=== PATIENT | male | born 1940 | race Caucasian/White ===

== ENCOUNTER 2021-02-13 17:25 | Emergency (ER) | payer MEDICARE, OTHER ==
[2021-02-13] MEDS ORDERED: Lidocaine 2% 5 ML SDV ONE (17:46)
--- NOTE | 2021-02-13 18:22 | CR ---
[id number] RAD/RAD Fingers Left EXAM: RAD Fingers Left INDICATION: SAW INJURY. COMPARISON: None. DISCUSSION: There is an acute significantly comminuted distal second phalanx fracture with an associated soft tissue defect and apparent missing osseous fragments. There is extension to the distal interphalangeal joint without associated step-off or displacement seen at the articular surface. No radiopaque foreign body is identified. IMPRESSION: 1. Acute comminuted distal second phalanx fracture with missing bone fragments. Kenneth Hussein MD 02/13/21 [id number] Thank you for allowing us to participate in the care of your patient.
--- NOTE | 2021-02-13 18:31 | EDM.PDOC ---
ED HPI GENERAL MEDICAL PROBLEM - General Chief Complaint: Laceration Stated Complaint: LEFT INDEX FINGER Table saw injury Time Seen by Provider: 02/13/21 17:35 Source of Information: Reports: Patient History Limitations: Reports: No Limitations - History of Present Illness INITIAL COMMENTS - FREE TEXT/NARRATIVE: 80-year-old male presents emergency room with an injury to his left index finger which occurred from a table saw injury while ripping wood. Accident happened about 5 PM this evening. He was brought here by his nephew for evaluation. Other than numbness and slight discomfort to the finger he has no other complaints. He did bandages prior to arrival. He is otherwise very healthy gentleman has not had any significant past medical history no previous hospitalizations. He does not take any medications. He has no known drug allergies. He is otherwise a very healthy. He lives independently on his own. Onset: Today Onset Date: 02/13/21 Onset Time: 17:00 Duration: Minutes:, Constant Location: Reports: Upper Extremity, Left (index finger table saw injury) Quality: Reports: Throbbing Severity: Severe Improves with: Reports: Immobilization Worsens with: Reports: Movement Associated Symptoms: Reports: Other (numbness) Treatments [employer]: Reports: Dressing(s) Left Finger-Index Pain Score (Numeric/FACES): 2 - Related Data Allergies Allergy/AdvReac Type Severity Reaction Status Date / Time No Known Drug Allergies Allergy Cannot Verified 02/13/21 17:39 Remember Home Meds: Home Meds . [No Known Home Meds] 02/13/21 [History] ED ROS GENERAL - Review of Systems Review Of Systems: Comprehensive ROS is negative, except as noted in HPI. ED EXAM, SKIN/RASH Exam: See Below Exam Limited By: No Limitations General Appearance: Alert, WD/WN, No Apparent Distress Eye Exam: Bilateral Eye: EOMI Ears: Hearing Grossly Normal Nose: Normal Inspection Throat/Mouth: Normal Inspection, Normal Voice Head: Atraumatic, Normocephalic Neck: Normal Inspection, Supple Respiratory/Chest: No Respiratory Distress, Lungs Clear Cardiovascular: Regular Rate, Rhythm GI/Abdominal: Soft, Non-Tender Back Exam: Normal Inspection Extremities: Other (partial amputation left index finger distal Phalanx. Nailbed loss.) Neurological: Alert, Oriented, Sensory/Motor Deficit (distal finger numbess) Psychiatric: Normal Affect, Normal Mood Skin: Wound/Incision (left finger distal) Location, Skin: Upper Extremity, Left (left distal index finger) Course - Vital Signs Last Recorded V/S: Last Vital Signs Temp 96.8 F L 02/13/21 17:40 Pulse 82 02/13/21 17:40 Resp 16 02/13/21 17:40 BP 172/82 H 02/13/21 18:42 Pulse Ox 97 02/13/21 17:40 - Orders/Labs/Meds Meds: Medications Discontinued Medications Generic Name Dose Route Start Last Admin Trade Name Janice PRN Reason Stop Dose Admin Lidocaine Confirm 02/13/21 17:46 Lidocaine 2% 5 Ml Sdv Administered 02/13/21 17:47 Dose 5 ml .ROUTE .[facility] ONE - Radiology Interpretation Free Text/Narrative:: X-rays 2 views left finger(index) Discussion: There is acute significantly comminuted distal second phalanx fracture with associated soft tissue defect and apparent missing osseous fragments. There is extension of the distal interphalangeal joint without associated step-off or displacement seen at the articular surface. No radiopaque foreign body is identified. 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 Transfer to [facility] for definitive management of partial left index amputation 2. Do not eat or drink anything during your drive. Remain n.p.o. 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 Light dressing was applied with Coban for compression. 2. I offered the patient a digital block for pain relief. He denied wanting this at this time as he is mainly just having some numbness at the distal finger and his pain is well controlled.. 3. Discussed with transfer for completion of the amputation and revision of the distal phalanx tip with [facility] in [place]. Awaiting for patient acceptance. 4. Preoperative H&P was completed no contraindications to proceed with surgery.
== END 2021-02-13 19:00 ==
LOC: KA.ED 17:25
DX: S68.621A Partial traumatic transphalangeal amputation of left index finger, initial encounter (principal); W27.0XXA Contact with workbench tool, initial encounter
CPT/HCPCS: 73140-F1; 99283; 99284-25

== ENCOUNTER 2024-04-12 18:06 | Inpatient (IN) | payer MEDICARE, OTHER ==
[2024-04-12 18:54] LABS: HEMATOCRIT 54.2 % (40.0-52.0); HEMOGLOBIN 17.8 g/dL (13.0-17.0); MEAN CORPUSCULAR HEMOGLOBIN 29.1 pg (27.0-31.0); MEAN CORPUSCULAR HGB CONC 32.8 g/dL (32.0-36.0); MEAN CORPUSCULAR VOLUME 88.7 fL (82.0-92.0); PLATELET COUNT,PLT 182 10^3/uL (150-400); RED BLOOD CELL COUNT 6.11 10^6/uL (4.50-6.00); RED CELL DISTRIBUTION WIDTH 13.2 % (11.5-14.5); WHITE BLOOD CELL COUNT,WBC 10.21 10^3/uL (5.00-10.00)
[2024-04-12] MEDS: Sodium Chloride 0.9% 1,000 ML IV ONE (19:04)
[2024-04-12] MEDS: Diltiazem 25 MG/5 ML SDV IVPUSH ONE (19:09)
[2024-04-12 19:23] LABS: ANION GAP 13.1 mmol/L (5-15); BILIRUBIN TOTAL 0.8 mg/dL (0.2-1.0); CALCIUM 9.2 mg/dL (8.7-10.3); CREATININE 1.71 mg/dL (0.51-1.17); EST CRCL DRUG DOSING (CG) 32.73 mL/min; MAGNESIUM 1.8 mg/dL (1.8-2.4); POTASSIUM,K 5.1 mmol/L (3.5-5.1); PROTEIN TOTAL,TP 8.4 g/dL (6.4-8.2)
[2024-04-12] MEDS ORDERED: Ondansetron 4 MG/2 ML SDV IV PRN (21:07)
[2024-04-12] MEDS ORDERED: Melatonin 3 MG Tab PO PRN (21:07)
[2024-04-12] MEDS ORDERED: Apixaban 5 MG Tab PO SCH (21:30)
[2024-04-12] MEDS: Apixaban 5 MG Tab PO SCH (21:36)
[2024-04-13 07:24] LABS: BASOPHILS ABSOLUTE AUTO 0.01 10^3/uL (0.00-0.10); BASOPHILS PERCENT AUTO 0.1 % (0.0-1.0); EOSINOPHILS ABSOLUTE AUTO 0.18 10^3/uL (0.10-0.30); EOSINOPHILS PERCENT AUTO 1.8 % (1.0-3.0); HEMATOCRIT 51.1 % (40.0-52.0); HEMOGLOBIN 16.9 g/dL (13.0-17.0); IMMATURE GRAN ABSOLUTE AUTO 0.02 10^3/uL (0.00-0.50); IMMATURE GRAN PERCENT AUTO 0.2 % (0.0-5.0); LYMPHOCYTES ABSOLUTE AUTO 3.24 10^3/uL (1.00-4.00); MEAN CORPUSCULAR HEMOGLOBIN 29.2 pg (27.0-31.0); MEAN CORPUSCULAR HGB CONC 33.1 g/dL (32.0-36.0); MEAN CORPUSCULAR VOLUME 88.3 fL (82.0-92.0); MONOCYTES ABSOLUTE AUTO 0.78 10^3/uL (0.10-0.80); MONOCYTES PERCENT AUTO 7.9 % (2.0-8.0); NEUTROPHILS ABSOLUTE AUTO 5.59 10^3/uL (2.50-7.00); PLATELET COUNT,PLT 181 10^3/uL (150-400); RED BLOOD CELL COUNT 5.79 10^6/uL (4.50-6.00); RED CELL DISTRIBUTION WIDTH 13.1 % (11.5-14.5); WHITE BLOOD CELL COUNT,WBC 9.82 10^3/uL (5.00-10.00)
[2024-04-13 07:43] LABS: ANION GAP 14.4 mmol/L (5-15); CALCIUM 9.1 mg/dL (8.7-10.3); CARBON DIOXIDE,CO2 26.1 mmol/L (21.0-32.0); CREATININE 1.4 mg/dL (0.51-1.17); EST CRCL DRUG DOSING (CG) 39.98 mL/min; POTASSIUM,K 4.5 mmol/L (3.5-5.1)
[2024-04-13] MEDS: Diltiazem 120 MG Cap.CD PO SCH (09:09)
[2024-04-13] MEDS: Acetaminophen 325 MG Tab PO PRN (14:19)
[2024-04-14 07:44] LABS: ALBUMIN 3.3 g/dL (3.40-5.00); ANION GAP 11.5 mmol/L (5-15); CALCIUM 8.9 mg/dL (8.7-10.3); CARBON DIOXIDE,CO2 27.9 mmol/L (21.0-32.0); CREATININE 1.37 mg/dL (0.51-1.17); EST CRCL DRUG DOSING (CG) 40.85 mL/min; PHOSPHORUS 2.7 mg/dL (2.6-4.7); POTASSIUM,K 4.4 mmol/L (3.5-5.1)
[2024-04-14 07:49] LABS: INR 1.1 (0.9-1.1); PROTHROMBIN TIME 12.1 SEC (9.3-12.2)
[2024-04-14] MEDS: Diltiazem 120 MG Cap.CD PO ONE (13:13)
[2024-04-14] MEDS: Apixaban 5 MG Tab PO ONE (13:16)
== END 2024-04-14 13:50 | disposition home or self-care (01) | DRG 310 ==
LOC: KA.ED 18:06 → KA.MS 20:05
PROVIDERS: ADMIT Nurse Practitioner; ATTEND Family Medicine
DX: R55 Syncope and collapse (principal); I48.91 Unspecified atrial fibrillation; Z66 Do not resuscitate; R79.89 Other specified abnormal findings of blood chemistry; I25.10 Atherosclerotic heart disease of native coronary artery without angina pectoris; H54.7 Unspecified visual loss; N18.2 Chronic kidney disease, stage 2 (mild); H91.90 Unspecified hearing loss, unspecified ear; Z95.1 Presence of aortocoronary bypass graft; Z87.891 Personal history of nicotine dependence
CPT/HCPCS: 36415; 71045; 80048; 80053; 80069; 82947; 83735; 83880; 84484; 85025; 85027; 85379; 85610; 93005; 93010; 96361; 96374; 99223-GT; 99233-GT; 99239-GT; 99284; 99285-25; A9270-GY; J3490; J7030; Q3014